=== PATIENT | female | born 1955 | race Caucasian/White ===

== ENCOUNTER 2019-02-26 05:50 | Observation (INO) | payer OTHER ==
[2019-02-25 09:02] VITALS: BMI 23.5
--- NOTE | 2019-02-25 10:07 | HP ---
HISTORY OF PRESENT ILLNESS: This is a 63-year-old female, who reports to our office for evaluation of left arm pain. She states that she has had some arm and thumb pain since 2016. However, in April, things got a lot worse. The patient states she has had pain from her neck, behind her shoulder blade, down to back of her left arm, to her thumb. At times, her thumb will go numb. She has noticed some right-sided elbow pain. Steroids have helped while she is on them. She has had four visits with physical therapy, which is not helping at this point. The patient denies injections Aleve and muscle relaxers. Sitting, reading, or writing is most painful. REVIEW OF SYSTEMS: A 10-point review of systems has been completed and is negative other than stated in the above HPI. PAST MEDICAL HISTORY: History of obese, alcoholism, anxiety, chronic pain. SURGICAL HISTORY: Deviated septum and knee surgery. FAMILY HISTORY: Father was , diagnosed with cancer. Mother , diagnosed with cancer. SOCIAL HISTORY: The patient is a nonsmoker. Drinks alcohol on occasion. Denies drug use. MEDICATIONS: Estradiol, medroxyprogesterone acetate, escitalopram, cyclobenzaprine, Aleve. ALLERGIES: NO KNOWN DRUG ALLERGIES. PHYSICAL EXAMINATION: CONSTITUTIONAL: The patient is alert and oriented x3. Appears nontoxic. RESPIRATIONS: Normal work of breathing, on room air. NECK: Soft and supple. No masses are noted. Range of motion is intact and nonpainful. NEUROLOGIC: Awake, alert, and oriented x3. Memory, attention, fund of knowledge are normal. Cranial nerves grossly intact. EXTREMITIES: Upper extremities 5/5 strength in deltoids, triceps, finger extension, finger intrinsics. Left, 4/5 in biceps, wrist extension. Sensation equal bilaterally. Reflexes symmetric. Spurling's, positive on the left. IMAGING DATA: MRI cervical spine shows left foraminal disease at C5-C6 and C6, C7, and T1, and T1-T2. ASSESSMENT AND PLAN: Cervical radiculopathy. Dr. Spivey has offered surgery, ACDF, C5-C6 laminectomy, foraminotomy, C7-T1 and T1-T2. The patient states she understands the risks and is willing to proceed with surgery. Job ID: [id number]
[2019-02-26] MEDS ORDERED: Bupivacaine HCl 0.5%/Epinephrine 1:200,000/PF 30 ml Vial ONE (06:14)
[2019-02-26] MEDS ORDERED: Thrombin 5000 UNITS/5 ML VIAL ONE (06:15)
[2019-02-26] MEDS ORDERED: Bacitracin Zinc Ointment 30 gm TUBE ONE ×2 (06:15→09:38)
[2019-02-26] MEDS ORDERED: Sodium Chloride 0.9% 20 ML ONE (06:15)
[2019-02-26 06:27] LABS: Hemoglobin 13.8 g/dL (12.0-16.0); Mean Corpuscular HGB CONC 34.7 g/dL (32.0-36.0); Mean Corpuscular Hemoglobin 35.2 pg (27.0-31.0); Mean Platelet Volume 6.7 fL (7.4-10.4); Platelet Count 214 thou/uL (130-400); RBC Distribution Width 11.2 % (11.5-14.5); Red Blood Cell (RBC) Count 3.91 mill/uL (4.20-5.40); White Blood Cell (WBC) Count 6.4 thou/uL (4.8-10.8)
[2019-02-26 06:33] LABS: PTT 25.8 SEC (22.9-36.1)
[2019-02-26] MEDS ORDERED: Fentanyl 100 MCG/2 ML VIAL ONE ×2 (06:37→14:54)
[2019-02-26] MEDS ORDERED: HYDROmorphone 0.5 MG/0.5 ML SYRINGE ONE (06:37)
[2019-02-26] MEDS ORDERED: Scopolamine 1.5 mg/72 hour Patch ONE (06:48)
[2019-02-26] MEDS ORDERED: Midazolam HCl 2 mg/2 ml Vial ONE ×3 (07:06→15:04)
[2019-02-26] MEDS ORDERED: Ketamine 50 MG/ML (10ML VIAL) ONE (08:13)
[2019-02-26] MEDS ORDERED: Albumin 5% 500 ML ONE (08:13)
[2019-02-26] MEDS ORDERED: Phenylephrine HCL 10 MG/ML VIAL ONE ×2 (08:36→13:11)
[2019-02-26] MEDS ORDERED: Glycopyrrolate 0.2 MG/ML 5 ML SYRINGE ONE ×2 (08:36→11:17)
[2019-02-26] MEDS ORDERED: HYDROmorphone 2 MG/ML VIAL ONE (10:29)
[2019-02-26] MEDS ORDERED: diphenhydrAMINE 50 MG/ML VIAL ONE (11:17)
[2019-02-26] MEDS ORDERED: Rocuronium Bromide 10 MG/ML (10ML VIAL) ONE (11:17)
[2019-02-26] MEDS ORDERED: PROPOFOL 200 MG/20 ML VIAL ONE (11:17)
[2019-02-26] MEDS ORDERED: Lidocaine 2% PF 5 ML VIAL ONE (11:17)
[2019-02-26] MEDS ORDERED: Ketorolac Tromethamine 30 MG/ML VIAL ONE (11:17)
[2019-02-26] MEDS ORDERED: Dexamethasone 20 MG/5 ML VIAL ONE (11:17)
[2019-02-26] MEDS ORDERED: ePHEDrine/0.9% NaCl/PF SYRINGE 50 mg/10 ml ONE (11:17)
[2019-02-26] MEDS ORDERED: PHENYLEPHRINE-NS 100 MCG/ML 10 ML SYRINGE ONE ×2 (11:17→13:11)
[2019-02-26] MEDS ORDERED: Ondansetron PF 4 MG/2 ML Vial ONE ×2 (11:17→13:22)
[2019-02-26] MEDS ORDERED: CEFAZOLIN 1 GM VIAL ONE (11:17)
[2019-02-26] MEDS ORDERED: HYDROmorphone 2 MG/ML VIAL SLOW IVP PRN (14:01)
[2019-02-26] MEDS ORDERED: Meperidine HCl/PF 25 MG/ML VIAL SLOW IVP PRN (14:01)
[2019-02-26] MEDS ORDERED: Ondansetron HCl/PF 4 MG/2 ML Vial IVP PRN (14:01)
[2019-02-26] MEDS ORDERED: Promethazine HCl 25 MG/ML VIAL IM PRN ×3 (14:01→16:41)
[2019-02-26] MEDS ORDERED: Promethazine HCl 25 MG/ML VIAL ONE (14:57)
[2019-02-26] MEDS ORDERED: Acetaminophen 325 MG TAB PO PRN ×2 (14:59→16:41)
[2019-02-26] MEDS ORDERED: diphenhydrAMINE 25 MG CAP PO PRN ×2 (14:59→16:41)
[2019-02-26] MEDS ORDERED: Milk Of Magnesia 30 ML UDCUP PO PRN ×2 (14:59→16:41)
[2019-02-26] MEDS ORDERED: Sodium Chloride 0.9% 1,000 ML IV SCH (14:59)
[2019-02-26] MEDS ORDERED: Acetaminophen 650 MG Suppository PR PRN ×2 (14:59→16:41)
[2019-02-26] MEDS ORDERED: Prochlorperazine 10 MG/2 ML VIAL IM PRN ×2 (14:59→16:41)
[2019-02-26] MEDS ORDERED: Acetaminophen/Codeine 30-300mg Tablet PO PRN ×4 (14:59→16:41)
[2019-02-26] MEDS ORDERED: tiZANidine HCl 4 MG TAB PO PRN ×2 (14:59→16:41)
[2019-02-26] MEDS ORDERED: diphenhydrAMINE 50 MG/ML VIAL IVP PRN ×2 (14:59→16:41)
[2019-02-26] MEDS ORDERED: Promethazine HCl 12.5 MG SUPP PR PRN ×2 (14:59→16:41)
[2019-02-26] MEDS ORDERED: Mag-Al 1200 mg/1200 mg/30 ML UDCUP PO PRN ×2 (14:59→16:41)
[2019-02-26] MEDS ORDERED: Morphine 4 MG/ML VIAL SLOW IVP PRN ×2 (14:59→16:41)
[2019-02-26] MEDS ORDERED: Promethazine 25 MG TAB PO PRN ×2 (14:59→16:41)
[2019-02-26] MEDS ORDERED: Morphine 2 MG/ML SYRINGE SLOW IVP PRN ×2 (14:59→16:41)
[2019-02-26] MEDS ORDERED: Ondansetron PF 4 MG/2 ML Vial IVP PRN ×2 (14:59→16:41)
--- NOTE | 2019-02-26 15:19 | OP ---
DATE OF PROCEDURE: 02/26/2019 STOCK SHIPPER: Peggy Chand PA-C PREOPERATIVE INDICATION: Treat pain and prevent neurological deterioration. PREOPERATIVE DIAGNOSIS: Cervical intervertebral disk disease at C5-C6 with C6 radiculopathy. POSTOPERATIVE DIAGNOSIS: Cervical intervertebral disk disease at C5-C6 with C6 radiculopathy. PROCEDURES PERFORMED: Anterior cervical diskectomy, intervertebral arthrodesis, placement of structural allograft C5-C6, anterior cervical plating C5-C6, local morselized autograft, morselized allograft, operating microscope. PREOPERATIVE MEDICATION: Ancef 2 g IV. DRAIN NUMBER: Zero. DRAIN TYPE: None, DESCRIPTION OF PROCEDURE: The patient was brought to the operating room. General endotracheal anesthesia was induced. The patient was positioned on the operating table with her neck in normal anatomic alignment and a lateral fluoro radiograph was used to plan our incision. The right side of the neck was sterilely prepped and draped. We opened with a 10 blade knife and controlled bleeding with bipolar cautery. We dissected sharply to the platysma and cut this muscle in line with our incision. We continued our dissection medial to the sternocleidomastoid and lateral to the trachea and esophagus. We arrived at the prevertebral space. We placed a marker at C5-C6 and took a lateral fluoro radiograph to confirm the level upon which we were operating. We elevated the longus colli muscles off the anterior surface of C5 and C6 and placed a self-retaining retractor beneath them. Distraction pins were placed at C5 and C6 and we distracted across the intervening interspace. We incised the interspace with a 15 blade knife and removed disk contents using curettes and rongeurs. As we approached the posterior longitudinal ligament, we brought the operating microscope into the field. Under microscopic magnification and using microsurgical techniques, we removed the remainder of the intervertebral disk. We removed posterior osteophytes and posterior longitudinal ligament from one neural foramen all the way to the other across the entire interspace until the dura was decompressed throughout. We turned our attention to arthrodesis. Using curettes, we prepared the endplates for grafting. We measured the height of the interspace to 7 mm. A 7-mm corticocancellous structural allograft was brought into the field. Into the cancellous bone, we placed demineralized bone matrix and some of our morselized autograft. The autograft was obtained from osteophytectomy bone that was cleaned of soft tissue attachments morselized and added into our demineralized bone matrix to form a fusion substrate. The allograft was advanced into the interspace under radiographic guidance to the appropriate depth. We then removed our distraction pins and the operating microscope. A 14-mm plate was brought into the field. We drilled pilot instructor holes through the plate into the vertebral bodies at C5 and C6 and we affixed the plate using 14 mm screws. Fixed angle screws were used at C6 and variable angle screws at C5. We engaged the locking mechanism over each of 4 screws. AP and lateral fluoro radiographs confirmed adequate positioning of our instrumentation. We irrigated with bacitracin irrigation. We closed the wound in anatomical layers and we applied a sterile dressing. At the completion of this portion of the procedure, the patient was then transferred to another operating table with [place] pin and head of human resources for posterior portion of our next procedure, which will be dictated under a separate heading. Job ID: [id number]
[2019-02-26] MEDS: Sodium Chloride 0.9% 1,000 ML IV SCH (17:17)
--- NOTE | 2019-02-26 19:58 | OP ---
DATE OF PROCEDURE: 02/26/2019 HOT DOG VENDOR: Peggy Chand PA-C PREOPERATIVE INDICATION: Treat pain and prevent neurological deterioration. PREOPERATIVE DIAGNOSES: Left C8 and T1 radiculopathies, left C7-T1 intervertebral disk herniation, and left T1-T2 intervertebral disk herniation. POSTOPERATIVE DIAGNOSES: Left C8 and T1 radiculopathies, left C7-T1 intervertebral disk herniation, and left T1-T2 intervertebral disk herniation. PROCEDURES PERFORMED: Left-sided posterior laminoforaminotomy, C6-C7 with microdiskectomy, left posterior laminoforaminotomy, T1-T2 with microdiskectomy, operating microscope. PREOPERATIVE MEDICATIONS: Ancef 2 g IV. DRAIN NUMBER: Zero. DRAIN TYPE: None. DESCRIPTION OF PROCEDURE: The patient was transferred from the original operating table for her ACDF onto the second operating table in a prone position. Her chest and hips were supported by gel-filled chest rolls. A Torres pin and head school custodian were used to mobilize the patient's head in a Torres attachment and locked it in place. We planned our incision at the cervicothoracic junction and took a lateral fluoro radiograph to plan it. The neck was sterilely prepped and draped. We opened a midline incision with a 10 blade knife. We controlled bleeding with bipolar and monopolar cautery. We used monopolar cautery to dissect through subcutaneous tissues to the cervicothoracic fascia. The fascia was incised left to the midline and reflected the paraspinal muscles off the spinous process and lamina of C7, T1, and T2. We placed a marker at a facet joint, took a lateral fluoro radiograph to confirm the levels upon, which we were operating. We then used [place]ison rongeurs to fashion a small laminoforaminotomy at C7-T1 on the left and at T1-T2. The operative microscope was brought in the field. Under microscopic magnification and using microsurgical techniques, we widened our laminoforaminotomies. Using a high-speed drill, we thinned the bone. Using 1 mm [place]ison rongeurs, we opened down the foramen over the C8 and T1 nerve roots respectively. At the C8 nerve root, the intervertebral disk protrusion was ventral to the nerve and could be easily accessed over the shoulder of the nerve and less easily accessed through the axilla. The opposite was true at T1-T2, where the intervertebral disk protrusion was more prominent in the axilla of the T1 nerve root. At both the interspaces, we gently mobilized disk material from the ventral aspect of the foramen with micro ball probes. This was done after making small incisions into the disks at both sites. We carefully used curettes and probes until we reduced the amount of the ventral epidural disk at each of the foramina, and the nerve root was no longer stretched, and the foramen was widely patent. When this level of decompression was achieved, we irrigated with bacitracin irrigation. We infused local anesthetic in the paraspinal muscles. We closed the wound in anatomical layers, and we applied a sterile dressing. This was a clean case, no contamination. Job ID: [id number]
[2019-02-26] MEDS: Gabapentin 300 MG CAP PO SCH (21:10)
[2019-02-26] MEDS: CEFAZOLIN 2 GM in Premix Bag 1 BAG IVPB SCH (21:11)
[2019-02-26] MEDS ORDERED: CEFAZOLIN 2 GM in Premix Bag 1 BAG IVPB SCH (23:00)
[2019-02-27 04:12] VITALS: TEMP 98.3
[2019-02-27] MEDS: CEFAZOLIN 2 GM in Premix Bag 1 BAG IVPB SCH (05:17)
[2019-02-27] MEDS: Sodium Chloride 0.9% 1,000 ML IV SCH (05:29)
[2019-02-27 07:53] VITALS: BP 111/72
[2019-02-27] MEDS: Gabapentin 300 MG CAP PO SCH (08:08)
--- NOTE | 2019-02-27 11:03 | PRG ---
DATE OF SERVICE: 02/27/2019 Ms. Orlando is on first postoperative day after ACDF and posterior cervical laminectomy with Dr. Spivey. Her pain is quite well controlled. She has been wearing her collar when up. She reports some expected dysphagia, but otherwise feels excellent. The radicular pain she was experiencing has essentially resolved. She has some numbness and tingling to the left upper extremity in the hand and the ulnar aspect of the forearm, but otherwise appears to be doing excellent. She has already been ambulating in the hallways. She will be discharged home today in good condition with outpatient followup planned in the clinic at 2 weeks. All her questions were answered regarding recovery and expectations over the next 2 weeks. Job ID: [id number]
== END 2019-02-27 10:45 | disposition home or self-care (01) ==
LOC: SDC 05:50 → SURG A 13:48 → EDSTATUS 16:48
PROVIDERS: ADMIT Neurological Surgery; ATTEND Neurological Surgery
PROC: 0RG1070 Fusion of Cervical Vertebral Joint with Autologous Tissue Substitute, Anterior Approach, Anterior Column, Open Approach (ICD-10-PCS; principal; 2019-02-26)
PROC: 0RT30ZZ Resection of Cervical Vertebral Disc, Open Approach (ICD-10-PCS; 2019-02-26)
PROC: 0RB30ZZ Excision of Cervical Vertebral Disc, Open Approach (ICD-10-PCS; 2019-02-26)
PROC: 01N10ZZ Release Cervical Nerve, Open Approach (ICD-10-PCS; 2019-02-26)
PROC: 0RB90ZZ Excision of Thoracic Vertebral Disc, Open Approach (ICD-10-PCS; 2019-02-26)
DX: M50.122 Cervical disc disorder at C5-C6 level with radiculopathy (principal); M48.02 Spinal stenosis, cervical region; F41.9 Anxiety disorder, unspecified; G89.29 Other chronic pain; F10.21 Alcohol dependence, in remission; F32.9 Major depressive disorder, single episode, unspecified; E66.9 Obesity, unspecified; Z68.23 Body mass index [BMI] 23.0-23.9, adult; Z79.899 Other long term (current) drug therapy; Z91.040 Latex allergy status
CPT/HCPCS: 36415; 76000; 85027; 85610; 85730; 90471; 90732; 96365; 96376; C1713; G0009; G0378; J0131; J0670; J0690; J1100; J1170; J1200; J1885; J2001; J2250; J2270; J2370; J2405; J2550; J2704; J3010; J3370; J3490; P9045